=== PATIENT | female | born 1975 | race Caucasian/White ===

== ENCOUNTER 2017-10-30 17:46 | Emergency (ER) | payer BC, OTHER ==
[2017-10-30 18:53] VITALS: BP 121/75
--- NOTE | 2017-10-30 19:14 | UC ---
Epistaxis Nasal HPI - HPI Summary HPI Summary: Pt presents with c/o nasal sores, drainage and sinus pressure and pain that began in June 2017. Pt states that her nose is swollen with firm round areas that drain clear fluid when pressed. She reports that they are painful, and they are intermittent and that they move location. Pt has used mupuricin ointment, saline nasal rinse, multiple "home remedies" with no improvement. Pt was tested for MRSA and tested negative. Pt has been seen by PCP and Engineering Designer provider but not a ENT provider for presenting c/o. - History of Current Complaint Chief Complaint: UCGeneralIllness Stated Complaint: SKIN/SINUS COMPLAINT Time Seen by Provider: 10/30/17 18:52 Hx Obtained From: Patient Hx Last Menstrual Period: 10/16/17 ?: No Onset/Duration: Gradual Onset, Lasting Weeks, Still Present, Worse Since - onset Timing: Constant Severity Initially: Mild Severity Currently: Moderate Pain Intensity: 0 Aggravating Factor(s): Nothing Alleviating Factor(s): Pressure Associated Signs And Symptoms: Positive: Sinus Pain, Nasal Discharge - Allergies/Home Medications Allergies/Adverse Reactions: Allergies Allergy/AdvReac Type Severity Reaction Status Date / Time Adhesive Tape Allergy Swelling Verified 12/10/15 19:40 latex Allergy Swelling Verified 10/30/17 18:48 PMH/Surg Hx/FS Hx/Imm Hx Previously Healthy: Yes GI/ History: Gall Bladder Disease, Kidney Stones - Surgical History Surgical History: Yes Surgery Procedure, Year, and Place: CHOLECYSTECTOMY--2010. HERNIA REPAIR--1979 OR 2010. LIVER WEDGE BX- 11/2010, & 10/2015. LITHOTRIPSY AND STENT FOR KIDNEY STONES. bariatric surgery mar 2015 - Family History Known Family History: Negative: Hypertension, Diabetes - Social History Occupation: Employed Full-time Lives: With Family Alcohol Use: Occasionally Substance Use Type: None Smoking Status (MU): Former Smoker Have You Smoked in the Last Year: No When Did the Patient Quit Smoking/Using Tobacco: 2002 Review of Systems Constitutional: Fatigue Skin: Negative Eyes: Negative ENT: Nasal Discharge, Sinus Congestion, Sinus Pain/Tenderness Respiratory: Negative Cardiovascular: Negative Gastrointestinal: Negative Genitourinary: Negative Motor: Negative Neurovascular: Negative Musculoskeletal: Negative Neurological: Negative Psychological: Negative Is Patient Immunocompromised?: No All Other Systems Reviewed And Are Negative: Yes Physical Exam Triage Information Reviewed: Yes Appearance: Well-Appearing Vital Signs: Initial Vital Signs Temp 98.5 F 10/30/17 18:44 Pulse 91 10/30/17 18:44 Resp 18 10/30/17 18:44 BP 121/75 10/30/17 18:44 Pulse Ox 100 10/30/17 18:44 Vital Signs Reviewed: Yes Eye Exam: Normal ENT: Positive: Nasal drainage, Sinus tenderness, Other - possible deviated septum Dental Exam: Normal Neck exam: Normal Respiratory Exam: Normal Cardiovascular Exam: Normal Musculoskeletal Exam: Normal Neurological Exam: Normal Psychological Exam: Normal Skin Exam: Normal Epistaxis Nasal Course/Dx - Course Course Of Treatment: Pt was referred to multiple ENT providers. - Differential Dx/Diagnosis Differential Diagnosis/HQI/PQRI: Polyps, Sinusitis Provider Diagnoses: sinusitis Discharge - Sign-Out/Discharge Documenting (check all that apply): Patient Departure All imaging exams completed and their final reports reviewed: No Studies - Discharge Plan Condition: Stable Disposition: HOME Prescriptions: Amoxicillin PO (*) [Amoxicillin 875 MG (*)] 875 mg PO Q12H #20 tab Patient Education Materials: Antihistamine/Decongestant (By mouth), Sinusitis ( ED) Referrals: [facility] [Outside] - If Needed Sumanth Graves MD [Medical Doctor] - Nick Vega MD [Medical Doctor] - No Primary Care Phys,NOPCP [Primary Care Provider] - Additional Instructions: Please follow up with your PCP as needed. We have provided names to ENT providers who provide office hours in [place] and are part of the [facility] system. It is recommended that you seek care by an ENT provider regarding your presenting symptoms today. - Billing Disposition and Condition Condition: STABLE Disposition: Home
== END 2017-10-30 19:40 | disposition home or self-care (01) ==
LOC: UCCORT 17:46
DX: J32.9 Chronic sinusitis, unspecified (principal); Z87.891 Personal history of nicotine dependence
CPT/HCPCS: 99212; G0463